=== PATIENT | male | born 1990 | race Caucasian/White ===

== ENCOUNTER 2025-01-13 16:12 | Emergency (ER) | payer SELFPAY ==
--- NOTE | 2025-01-13 16:21 | HMH.EDGENADL ---
Discharge Plan Disposition Patient Disposition: Home, Self-Care Condition: Good Prescriptions Prescriptions: New ondansetron 4 mg tablet,disintegrating 4 mg PO QID PRN (Reason: nausea and vomiting) Qty: 10 0RF Referrals Follow up/Referrals: Provider,Referral, MD [Primary Care Provider, Medical] - See instructions Activity Restrictions/Add. Instructions Additional Instructions/Restrictions: As we discussed I am sending you home with close head injury precautions. Patient needs 48 hours of low stimulation rest. If he develops any intractable headache change in level of consciousness or awareness intractable vomiting ringing in the ears etc. please take him to the nearest emergency room for reevaluation. I recommend strongly that he be evaluated again by his primary care physician within the next 2 to 3 days to ensure return to normal neurologic function. He may need further neurologic workup as an outpatient. Clinical Impressions Clinical Impression: Concussion Qualifiers: Encounter type: initial encounter Loss of consciousness presence/duration: without LOC Qualified Code(s): S06.0X0A - Concussion without loss of consciousness, initial encounter Instructions Patient Instructions: DI for Concussion, DI for Closed Head Injury Print Language Print Language: Danish Discharge ED Provider: Jonny Fields General Adult HPI <WOODY Olivares - Last Filed: 01/13/25 22:23> General Chief complaint: Head Injury Stated complaint: Head Injury Time Seen by Provider: 01/13/25 16:20 History of Present Illness HPI narrative: Mr. Zhou is a 35-year-old male presented from EMS for head injury. 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 Patient slid off the slide with approximately 20 feet to go sit up and on attempted to reenter the water slide slipped landing back first and striking his head. He did not lose consciousness according to bystanders to him personally spoke to however he immediately did not appear oriented and kept asking repetitive questions. Currently at the time my exam patient reports some occipital and cervical pain but denies numbness tingling loss of motor or sensory chest pain shortness of breath fever chills hemoptysis hematochezia melena nausea vomit diarrhea. He is not oriented to place or time but did recall that he was at a catholic camp and can recall some local folks but appears to have short-term memory issues currently Related Data Previous Rx's ?Medication ?Instructions ?Recorded ondansetron 4 mg disintegrating 4 mg PO QID PRN nausea and 01/13/25 tablet vomiting #10 tabs Allergies Allergy/AdvReac Type Severity Reaction Status Date / Time No Known Allergies Allergy Verified 01/13/25 17:03 [facility] <WOODY Olivares - Last Filed: 01/13/25 22:23> [facility] Disclaimer: The information contained in this section may have been updated after the patient was seen, as this information can be updated by other users. Social History (Updated 01/13/25 @ 22:23 by WOODY Olivares) Smoking Status: Never smoker alcohol intake: never current occupational status: employed Travel in the last 8 weeks?: None Have you lived/traveled outside [place] in past 30 days?: No Contact w/someone who lives/traveled outside [place] past 30 days?: No Exposure to someone with infectious disease in past 14 days?: No Do you have a fever (greater than 100.4 F or 38 C)?: No Have you tested positive for COVID-19?: No Exposed to someone with COVID-19 in past 14 days?: No Do you have a sore throat?: No Do you have a cough?: No Do you have any weakness?: No Do you have any diarrhea?: No Are you experiencing any unusual bleeding?: No Do you have any muscle aches/pain?: No Do you have any abdominal pain?: No Are you experiencing loss of taste or smell?: No <WOODY Olivares - Last Filed: 01/13/25 22:23> ROS Obtained: Yes Systems reviewed as appropriate & no additional complaints except as documented Physical Exam <WOODY Olivares - Last Filed: 01/13/25 22:23> General General appearance: alert and in no apparent distress Head Head exam: atraumatic Eye Eye exam: Present normal appearance, PERRL and EOMI Neck Neck exam: Present normal inspection, tenderness (Cervical tenderness and occiput no visible bony deformity contusions abrasions deformities noted) and lymphadenopathy Chest Chest inspection: Present normal inspection; Absent tenderness Respiratory Respiratory exam: Present normal lung sounds bilaterally; Absent respiratory distress Cardiovascular Cardiovascular exam: Present regular rate Neurological Exam Neurological exam: Present alert, CN II-XII intact, normal gait and motor sensory deficit; Absent oriented X3 Medical Decision Making <WOODY Olivares - Last Filed: 01/13/25 22:23> Medical Records Medical records reviewed: Yes I reviewed the patient's medical records. Screening: Per USPSTF and CDC recommendations, given the prevalence of disease in our region, it is our hospital?s policy to screen for HIV and viral Hepatitis for all patients aged 18 and over and those with ongoing risk factors. Fly Inquiry Pt receiving controlled substance: No Vital Signs: 01/13/25 16:22 01/13/25 17:19 01/13/25 18:00 Temperature 98.6 F 97.9 F Temperature Source Oral Oral Pulse Rate 68 Pulse Rate [Left Radial] 78 Respiratory Rate 17 16 Blood Pressure 140/79 142/79 H Blood Pressure [Right Arm] 148/72 H Blood Pressure Mean [Right Arm] 97 Blood Pressure Source Automatic Cuff Blood Pressure Source [Right Arm] Automatic Cuff Blood Pressure Position [Right Arm] Sitting 02 Sat by Pulse Oximetry 98 99 Oxygen Delivery Method Room Air Room Air Room Air Orders (Tests/Meds): ED MEDICATIONS Discontinued Medications Generic Name Dose Route Start Last Admin Trade Name Garryq PRN Reason Stop Dose Admin Acetaminophen 1,000 mg 01/13/25 16:38 01/13/25 17:05 Acetaminophen 500mg Tab PO 01/13/25 16:39 1,000 mg ONCE ONE Administration Iopamidol 80 ml 01/13/25 17:08 01/13/25 17:09 Iopamidol-370 (76%);100ml Bottle IV 01/13/25 17:09 80 ml ONCE ONE Administration Sodium Chloride 10 ml 01/13/25 17:08 01/13/25 17:09 Sodium Chloride 0.9% 10ml Syr (Rad Only) IV 01/13/25 17:09 10 ml ONCE ONE Administration Sodium Chloride 50 ml 01/13/25 17:08 01/13/25 17:09 0.9 % Sodium Chloride 50 Ml Vial IV 01/13/25 17:09 50 ml ONCE ONE Administration ORDERS Category Date Time Status CT angio head Stat Cat Scan 01/13/25 16:[address] angio neck Stat Cat Scan 01/13/25 16:[address] cervical spine wo con Stat Cat Scan 01/13/25 16:[address] head/brain wo con Stat Cat Scan 01/13/25 16:[address] lumbar spine wo con Stat Cat Scan 01/13/25 16:[address] thoracic spine wo con Stat Cat Scan 01/13/25 16:38 Completed Medical Decision Narrative: In summary patient is a 35-year-old male who presents to the emergency department for evaluation of fall and head injury. Patient is hemodynamically stable with a blood pressure 148/72 pulse 78 respiratory rate 17 O2 sats 98% normal sinus rhythm on the bedside monitor upon arrival, and afebrile at 90.6. Physical exam reveals a well-nourished well-developed 35-year-old gentleman who is currently in no acute distress. He is awake and interactive and oriented to past events but is unable to recall short-term events. Pupils equal round reactive to light and his extraocular movements are intact without pain. Patient has no visible injury on secondary survey no abrasions contusions deformities. Patient moves all 4 extremities with no focal neurologic deficits. Glascow coma score is 15 however he is awake and alert but not oriented to time and place circumstance patient does not know if he lost consciousness or not patient does not remember falling. Patient has occiput tenderness and C-spine tenderness but no palpable bony deformity. Differential diagnosis includes concussion versus intracranial hemorrhage versus C-spine fracture versus other occult fracture. Initial workup will be conducted with noncontrasted scans of the head and CTAs of the head and neck. Initial interventions include Tylenol only for now. Initial workup reviewed by me shows that he has no acute bony abnormality and no intracranial hemorrhage or vascular abnormality via my informal interpretation. Please see final radiology read for formal interpretation. Upon repeat evaluation patient still has short-term memory issues but has no focal neurologic deficits he is oriented to self and past events. He is able to correctly defy his who is present. He has no nausea no vomiting no headache currently. Given this patient is appropriate for discharge with closed head injury and traumatic brain injury precautions, follow-up with PCP within 48 hours for recheck and strict return precautions. Patient's verbalized understanding and agreement. <Jonny Fields MD - Last Filed: 01/13/25 23:36> Vital Signs: 01/13/25 16:22 01/13/25 17:19 01/13/25 18:00 Temperature 98.6 F 97.9 F Temperature Source Oral Oral Pulse Rate 68 Pulse Rate [Left Radial] 78 Respiratory Rate 17 16 Blood Pressure 140/79 142/79 H Blood Pressure [Right Arm] 148/72 H Blood Pressure Mean [Right Arm] 97 Blood Pressure Source Automatic Cuff Blood Pressure Source [Right Arm] Automatic Cuff Blood Pressure Position [Right Arm] Sitting 02 Sat by Pulse Oximetry 98 99 Oxygen Delivery Method Room Air Room Air Room Air Orders (Tests/Meds): ED MEDICATIONS Discontinued Medications Generic Name Dose Route Start Last Admin Trade Name Sandeep PRN Reason Stop Dose Admin Acetaminophen 1,000 mg 01/13/25 16:38 01/13/25 17:05 Acetaminophen 500mg Tab PO 01/13/25 16:39 1,000 mg ONCE ONE Administration Iopamidol 80 ml 01/13/25 17:08 01/13/25 17:09 Iopamidol-370 (76%);100ml Bottle IV 01/13/25 17:09 80 ml ONCE ONE Administration Sodium Chloride 10 ml 01/13/25 17:08 01/13/25 17:09 Sodium Chloride 0.9% 10ml Syr (Rad Only) IV 01/13/25 17:09 10 ml ONCE ONE Administration Sodium Chloride 50 ml 01/13/25 17:08 01/13/25 17:09 0.9 % Sodium Chloride 50 Ml Vial IV 01/13/25 17:09 50 ml ONCE ONE Administration ORDERS Category Date Time Status CT angio head Stat Cat Scan 01/13/25 16:[address] angio neck Stat Cat Scan 01/13/25 16:[address] cervical spine wo con Stat Cat Scan 01/13/25 16:[address] head/brain wo con Stat Cat Scan 01/13/25 16:[address] lumbar spine wo con Stat Cat Scan 01/13/25 16:[address] thoracic spine wo con Stat Cat Scan 01/13/25 16:38 Completed Medical Decision Narrative: In summary patient is a 35-year-old male who presents to the emergency department for evaluation of fall and head injury. Patient is hemodynamically stable with a blood pressure 148/72 pulse 78 respiratory rate 17 O2 sats 98% normal sinus rhythm on the bedside monitor upon arrival, and afebrile at 90.6. Physical exam reveals a well-nourished well-developed 35-year-old gentleman who is currently in no acute distress. He is awake and interactive and oriented to past events but is unable to recall short-term events. Pupils equal round reactive to light and his extraocular movements are intact without pain. Patient has no visible injury on secondary survey no abrasions contusions deformities. Patient moves all 4 extremities with no focal neurologic deficits. Glascow coma score is 15 however he is awake and alert but not oriented to time and place circumstance patient does not know if he lost consciousness or not patient does not remember falling. Patient has occiput tenderness and C-spine tenderness but no palpable bony deformity. Differential diagnosis includes concussion versus intracranial hemorrhage versus C-spine fracture versus other occult fracture. Initial workup will be conducted with noncontrasted scans of the head and CTAs of the head and neck. Initial interventions include Tylenol only for now. Initial workup reviewed by me shows that he has no acute bony abnormality and no intracranial hemorrhage or vascular abnormality via my informal interpretation. Please see final radiology read for formal interpretation. Upon repeat evaluation patient still has short-term memory issues but has no focal neurologic deficits he is oriented to self and past events. He is able to correctly defy his who is present. He has no nausea no vomiting no headache currently. Given this patient is appropriate for discharge with closed head injury and traumatic brain injury precautions, follow-up with PCP within 48 hours for recheck and strict return precautions. Patient's verbalized understanding and agreement. I was consulted by the NEO, and we discussed the complexity of the problems being addressed.I approved the treatment and management plan for this patient?s care in the Emergency Department, thus performing a substantive portion of the medical decision making.Signed, Jonny Fields MD MBA Critical Care <WOODY Olivares - Last Filed: 01/13/25 22:23> Critical Care Time Critical Care Time: Yes Attestation: On 01/13/25, the high probability of a clinically significant, sudden or life threatening deterioration of the following system(s) required my full and direct attention, intervention and personal management. The time I documented below is in addition to time spent performing reported procedures but includes the following listed in this critical care notation. Total Time Total Critical Care Time: 30
[2025-01-13 16:22] VITALS: BP 148/72; PULSE 78; RESP 17; TEMP 37; O2SAT 98; BMI 29.8
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
[2025-01-13] MEDS: ACETAMINOPHEN 500MG TAB 1000 MG PO (17:05)
[2025-01-13] MEDS: 0.9 % SODIUM CHLORIDE 50 ML VIAL IV (17:09)
[2025-01-13] MEDS: SODIUM CHLORIDE 0.9% 10ML SYR (RAD ONLY) 10 ML IV (17:09)
[2025-01-13] MEDS: IOPAMIDOL-370 (76%);100ML BOTTLE 80 ML IV (17:09)
[2025-01-13 17:19] VITALS: BP 140/79; O2SAT 99
[2025-01-13 18:00] VITALS: BP 142/79; PULSE 68; RESP 16; TEMP 36.6; O2SAT 99
== END 2025-01-13 18:21 | disposition home or self-care (01) ==
PROVIDERS: Emergency Provider Emergency Medicine
DX: S06.0X0A Concussion without loss of consciousness, initial encounter (principal); M54.2 Cervicalgia; W01.10XA Fall on same level from slipping, tripping and stumbling with subsequent striking against unspecified object, initial encounter
CPT/HCPCS: 70450; 70496; 70498; 72125; 72128; 72131; 99285; Q9967